=== PATIENT | female | born 1995 | race Caucasian/White ===

== ENCOUNTER 2025-02-09 13:32 | Emergency (ER) | payer SELFPAY ==
[~2025-02-09] VITALS: Ht 162.6 cm; Wt 93.3 kg
[2025-02-09 17:58] VITALS: BP 124/71; TEMP 97.5; O2SAT 99
[2025-02-09 18:21] LABS: HEMATOCRIT 41.1 % (36.0-47.0); HEMOGLOBIN 13.6 g/dl (12.0-15.5); MEAN CORPUSCULAR HEMOGLOBIN 28.9 pg (27.0-33.0); MEAN CORPUSCULAR HGB CONC 33.1 g/dl (32.0-36.5); MEAN CORPUSCULAR VOLUME 87.4 fl (80.0-96.0); PLATELET COUNT, AUTOMATED 228 10^3/uL (150-450); WHITE BLOOD COUNT 20.1 10^3/uL (4.0-10.0)
[2025-02-09 18:34] LABS: BLOOD UREA NITROGEN 10 MG/DL (9-23); CALCIUM LEVEL 9.1 MG/DL (8.5-10.1); CARBON DIOXIDE LEVEL 24 MMOL/L (20-31); CHLORIDE LEVEL 105 MMOL/L (98-107); GLOMERULAR FILTRATION RATE > 90.0 (>60); GLUCOSE, FASTING 85 MG/DL (60-100); POTASSIUM SERUM 4.9 MMOL/L (3.5-5.1); SODIUM LEVEL 139 MMOL/L (136-145)
[2025-02-09 18:40] LABS: HCG, SERUM QUALITATIVE NEGATIVE (NEGATIVE)
[2025-02-09 18:45] LABS: MONO SCRN POSITIVE (NEGATIVE)
[2025-02-09 19:00] LABS: ATYPICAL LYMPH 35 % (0-5); BASOPHILS 1 % (0-1); LYMPHOCYTES 45 % (16-44); MONOCYTES 5 % (0-5); NEUTROPHILS 14 % (28-66)
[2025-02-09 19:01] LABS: PLATELET ESTIMATE NORMAL (NORMAL)
[2025-02-09] MEDS: dexAMETHasone 4 MG TAB PO ONE (20:10)
== END 2025-02-09 20:25 | disposition home or self-care (01) ==
LOC: M ED 13:32
DX: B27.90 Infectious mononucleosis, unspecified without complication (principal); J45.909 Unspecified asthma, uncomplicated; Z91.018 Allergy to other foods

== ENCOUNTER 2025-02-13 11:29 | Emergency (ER) | payer SELFPAY ==
[~2025-02-13] VITALS: Ht 162.6 cm; Wt 95.3 kg
[2025-02-13] MEDS ORDERED: PROG1CAP8 PO (11:37)
[2025-02-13] MEDS ORDERED: IBUP200C25 PO (12:04)
[2025-02-13] MEDS ORDERED: APAP500T10 PO (12:04)
[2025-02-13] MEDS ORDERED: BENA25CA4 PO (12:04)
[2025-02-13 12:09] LABS: HEMATOCRIT 39.2 % (36.0-47.0); MEAN CORPUSCULAR HEMOGLOBIN 28.8 pg (27.0-33.0); MEAN CORPUSCULAR HGB CONC 33.2 g/dl (32.0-36.5); MEAN CORPUSCULAR VOLUME 86.7 fl (80.0-96.0); PLATELET COUNT, AUTOMATED 250 10^3/uL (150-450); RED BLOOD COUNT 4.52 10^6/uL (4.00-5.40); WHITE BLOOD COUNT 15.7 10^3/uL (4.0-10.0)
[2025-02-13 12:20] LABS: ERYTHROCYTE SEDIMENTATION RATE 31 mm/hr (0-20)
[2025-02-13 12:45] LABS: NEUTROPHILS 20 % (28-66)
[2025-02-13 13:02] LABS: ATYPICAL LYMPH 34 % (0-5); EOSINOPHILS 1 % (0-3); LYMPHOCYTES 37 % (16-44); MONOCYTES 6 % (0-5)
[2025-02-13 13:07] LABS: PLATELET ESTIMATE NORMAL (NORMAL)
[2025-02-13 13:13] LABS: SOURCE PERIPHERAL SMEAR
[2025-02-13] MEDS: dexAMETHasone 20MG/5ML VIAL IV ONE (14:11)
[2025-02-13] MEDS ORDERED: ISOVUE-370 76% 100ML VIAL As Ordered ONE (14:11)
[2025-02-13] MEDS: ACETAMINOPHEN *IV* 1,000 MG in IV 1 EA IV ONE (14:23)
[2025-02-13] MEDS ORDERED: AMOX875T2 PO (15:17)
[2025-02-13] MEDS ORDERED: MEDR4PAK PO (15:17)
[2025-02-13 15:25] VITALS: BP 132/75; TEMP 98.9; O2SAT 96
== END 2025-02-13 15:28 | disposition home or self-care (01) ==
LOC: M ED 11:29
DX: J03.90 Acute tonsillitis, unspecified (principal); B27.99 Infectious mononucleosis, unspecified with other complication; Z91.018 Allergy to other foods; Z79.1 Long term (current) use of non-steroidal anti-inflammatories (NSAID); Z79.2 Long term (current) use of antibiotics; Z79.899 Other long term (current) drug therapy
CPT/HCPCS: 70491; 80047; 80503; 84702; 85025; 85652; 86140; 96365; 96375; 99284; J0131; J1100; Q9967